=== PATIENT | female | born 1980 | race Native Hawaiian/Other Pacific Islander ===

== ENCOUNTER 2022-07-03 13:24 | Outpatient (CLI) | payer OTHER ==
[2022-07-03 13:50] LABS: PLATELET COUNT 308 K/uL (152-353)
[2022-07-03 14:09] LABS: POTASSIUM 3.8 mmol/L (3.6-5.2)
== END 2022-07-03 19:08 | disposition home or self-care (01) ==
LOC: LABW 13:24
PROVIDERS: ATTEND Internal Medicine
DX: E66.9 Obesity, unspecified (principal); F43.0 Acute stress reaction; C53.9 Malignant neoplasm of cervix uteri, unspecified; E55.9 Vitamin D deficiency, unspecified
CPT/HCPCS: 36415; 80053; 80061; 82652; 84443; 85027